=== PATIENT | female | born 1980 | race African-American/Black ===

== ENCOUNTER 2019-06-24 08:02 | Inpatient (IN) | payer BC ==
[~2019-06-24] VITALS: Ht 162.6 cm; Wt 63.5 kg
[2019-06-26] MEDS ORDERED: ATABEX DHA 200200 MG PO (10:25)
== END 2019-06-26 11:04 | disposition home or self-care (01) | DRG 832 ==
LOC: ER 08:02 → OB/GYN 19:07
PROVIDERS: ADMIT Obstetrics & Gynecology
PROC: BW30ZZZ Magnetic Resonance Imaging (MRI) of Abdomen (ICD-10-PCS; principal; 2019-06-24)
PROC: BW40ZZZ Ultrasonography of Abdomen (ICD-10-PCS; 2019-06-24)
DX: O65.5 Obstructed labor due to abnormality of maternal pelvic organs (principal); N83.511 Torsion of right ovary and ovarian pedicle; O34.11 Maternal care for benign tumor of corpus uteri, first trimester; D25.1 Intramural leiomyoma of uterus
CPT/HCPCS: 74181

== ENCOUNTER → 2019-06-24 | Emergency (ER) | payer BC ==
[~2019-06-24] VITALS: Ht 162.6 cm; Wt 63.5 kg
[~2019-06-24] MED LIST: ATABEX DHA 200200 MG PO
== END | disposition left against medical advice (07) ==
LOC: ER 04:31
DX: O26.891 Other specified pregnancy related conditions, first trimester (principal); R10.2 Pelvic and perineal pain; Z34.01 Encounter for supervision of normal first pregnancy, first trimester